=== PATIENT | male | born 1980 | race Two or more races ===

== ENCOUNTER 2023-03-04 21:25 | Emergency (ER) | payer BC, SELFPAY ==
[2023-03-04 21:28] VITALS: BP 216/134; PULSE 78; RESP 14; TEMP 36.2; O2SAT 97; BMI 38.8
--- NOTE | 2023-03-04 21:48 | ED.GENADULT ---
HPI - General Adult General Chief complaint: Laceration/Wound Stated complaint: Cut his L Thumb Time Seen by Provider: 03/04/23 21:48 History of Present Illness HPI narrative: Cut LEFT thumb with a kitchen knife approx 20 min ago. Bleeding controlled. Not on ASA or thinners 42-year-old man presenting to the emergency department with concern of an injury to his left thumb. He decided to make supper for everyone. Was cutting slot row and took the end of his finger. On exam I note that this is absent. He says that it is ?gone?. Does not sound as though there will be retrieval of this missing piece. Is having pain. Just could not get the bleeding to stop after wrapping and that is why presenting to the emergency department. Is not feeling lightheaded or nauseated. Shows well-healed finger on his right hand that he has done this once upon a time. No coagulopathies noted. Related Data Home Medications Medication Instructions Recorded Confirmed metoprolol tartrate 50 mg tablet 50 mg PO DAILY 03/04/23 03/04/23 Allergies Allergy/AdvReac Type Severity Reaction Status Date / Time No Known Drug Allergies Allergy Verified 03/04/23 21:33 Review of Systems Status of ROS: Reports: 6 or more systems reviewed and unremarkable except as noted in History and below [facility] Social History Smoking Status: Never smoker Do you use any of these nicotine containing products: None Second hand tobacco smoke exposure: No How often do you have a drink containing alcohol: never How often do you have six or more drinks on one occasion: Never AUDIT-C Alcohol total score: 0 Non-prescribed substance use: denies use service: No Exam Narrative: Exam Narrative: Here with appropriate attend of significant other. He is pleasant. Jovial. Breathing easily. Heart in regular rate and rhythm. Tattoos. Skin otherwise warm and dry. Only indication of new injury is the left thumb that is wrapped have a lay with gauze and athletic tape. Blood is oozing through the dressing. Removing this shows shaved distal skin of the thumb. Less so the pad and does not involve the nail. Oval ulceration essentially that bleeds briskly. Does not appear to be deep enough to involve the tuft. Clearly well-perfused. Const: Vital Signs, click to edit/add: Vital Signs - 24 hr 03/04/23 21:28 Temperature 97.2 F L Pulse Rate [Right Pulse Oximeter] 78 Respiratory Rate 14 Blood Pressure [Ri ght Upper Arm] 216/134 H Pulse Oximetry 97 Oxygen Delivery Me thod Room Air Documenting provider has reviewed patient's vital signs: yes Course Vital Signs Vital signs: Initial Vital Signs Temperature 97.2 F L 03/04/23 21:28 Temperature Source Temporal Artery Scan 03/04/23 21:28 Pulse Rate 78 03/04/23 21:28 Respiratory Rate 14 03/04/23 21:28 Blood Pressure 216/134 H 03/04/23 21:28 Blood Pressure Mean 161 H 03/04/23 21:28 Blood Pressure Position Sitting 03/04/23 21:28 Pulse Oximetry 97 03/04/23 21:28 Oxygen Delivery Method Room Air 03/04/23 21:28 Vital Signs Temperature 97.2 F L 03/04/23 21:28 Pulse Rate 78 03/04/23 21:28 Respiratory Rate 14 03/04/23 21:28 Blood Pressure 216/134 H 03/04/23 21:28 Pulse Oximetry 97 03/04/23 21:28 Oxygen Delivery Method Room Air 03/04/23 21:28 Temperature 97.2 F L 03/04/23 21:28 Pulse Rate 78 03/04/23 21:28 Respiratory Rate 14 03/04/23 21:28 Blood Pressure 175/122 H 03/04/23 22:54 Pulse Oximetry 97 03/04/23 21:28 Oxygen Delivery Method Room Air 03/04/23 21:28 Medical Decision Making MDM Narrative Medical decision making narrative: After initial evaluation is covered back up. I discussed injecting for digital block to allow further cares. In spite of his tattoos he would be disinclined to anesthetic like this; particularly the needles. We laugh about this. I do not think this wound will be easily suturable without extensive cut down. I would prefer just to stop bleeding. He has cleansed this extensively he reports. I return with Gelfoam antibiotic ointment, Band-Aid and skylar gauze wrap. This is placed and reassessed later has oozed through this wrap fairly quickly. I return to re-dress with tourniquet. Bleeding better controlled but this is more uncomfortable for him. Same dressing otherwise applied with addition of Coban. On reassessment appears to have controlled bleeding. I dispensed finger Stax splint for later use. Blood pressure noted to be elevated. Unsure how much of this is anxiety/pain response. See patient discharge plan Discharge Plan Discharge Clinical Impression: Injury of tip of finger Patient Disposition: Home, Self-Care Condition: Stable Additional Instructions: Do not remove this dressing until Monday. May need to wet it to get it off without taking off the Gelfoam that is forming part of the clot. If it bleeds through this current dressing, you can apply a tourniquet temporarily with a rubber band and re-dress it with the supplied dressings. If it bleeds through that, please return. After Monday I would change the dressing daily to keep moist with antibiotic ointment probably for least a week and a half. Whitish yellow tissue should be growing in. Do not scrape that off as that is granulation tissue/regrowth. However be seen for spreading redness after 2 days accompanied by heat, swelling, marked increase in pain, purulent drainage. Can take up to 800 mg of ibuprofen or up to 1000 mg of acetaminophen per dose. Alternative to the ibuprofen might be up to 500 mg of naproxen 2 times daily. Remember that each tablet of Cactus contains 325 mg of acetaminophen. Can use the finger Stax splint as needed for protection/comfort. Your blood pressure was rather elevated today; especially the diastolic or low number. I realize this situation is stressful and uncomfortable and might be contributing to higher blood pressures. I would recheck your blood pressure though every few days, can do this at pharmacy or fire station or clinic, over the next week or 2. Check after some minutes of rest. If blood pressures are generally greater than 130/80 please make an appointment to be seen. Unless you have specific reasons to take metoprolol as a first-line blood pressure medication, there are usually better alternatives to start with. No retire tiffanie ap?sito hasta el . Es posible que deba humedecerlo para quitarlo sin quitar la espuma de gel que forma parte del co?gulo. Si sangra a surekha?s de tiffanie ap?sito actual, puede aplicar un torniquete temporalmente con abigail huston el?stica y volver a vendarlo con los ap?sitos suministrados. Si sangra a surekha?s de eso, por favor devu?lvalo. Despu?s del lunes, cambiaba el ap?sito diariamente para mantenerme h?medo con chon?ento antibi?cali, probablemente jan al menos abigail semana y media. El tejido amarillo blanquecino debe estar creciendo. Sin embargo, se observa que el enrojecimiento se extiende despu?s de 2 d?as acompa?ado de calor, hinchaz?n, aumento marcado del dolor, secreci?n purulenta. Puede enriqueta hasta 800 mg de ibuprofeno o hasta 1000 mg de paracetamol por dosis. Abigail alternativa al ibuprofeno podr?a ser hasta 500 mg de naproxeno 2 veces al d?a. Recuerde que cada comprimido de Cactus contiene 325 mg de paracetamol. Puede usar la f?an Stax para el dedo seg?n sea necesario para protecci?n / comodidad. Benjamin presi?n arterial estaba bastante elevada hoy; especialmente el diast?radha o el n?reinaldo bajo. Me doy cuenta de que esta situaci?n es estresante e inc?moda y podr?a estar contribuyendo a abigail presi?n arterial m?s lori. Sin embargo, volver?a a controlar benjamin presi?n arterial cada pocos d?as, puede hacerlo en la farmacia, la estaci?n de bomberos o la cl?emmett, jan la pr?xima semana o 2. Compru?balo despu?s de unos minutos de descanso. Si la presi?n arterial es generalmente superior a 130/80, rock abigail aracely para ser atendido. A menos que tenga razones espec?ficas para enriqueta metoprolol kim medicamento de primera l?walter para la presi?n arterial, generalmente existen mejores alternativas para comenzar. Prescriptions: No Action metoprolol tartrate 50 mg tablet 50 mg PO DAILY Follow Up/Referrals: Provider,Not a Local [Primary Care Provider] - Stand Alone Forms: [employer] Info Instructions
[2023-03-04 22:54] VITALS: BP 175/122
== END 2023-03-04 23:11 | disposition home or self-care (01) ==
PROVIDERS: Emergency Provider Family Medicine
DX: S61.012A Laceration without foreign body of left thumb without damage to nail, initial encounter (principal); W26.0XXA Contact with knife, initial encounter
CPT/HCPCS: 29130; 99283; 99284

== ENCOUNTER 2023-04-13 08:52 | Outpatient (CLI) | payer BC, SELFPAY | END 2023-04-13 08:53 | disposition home or self-care (01) | PROVIDERS: Visit Provider Family Medicine | DX: I10 Essential (primary) hypertension (principal); R53.83 Other fatigue; Z13.220 Encounter for screening for lipoid disorders | CPT/HCPCS: 80053; 80061; 82043; 82570; 84443 ==